=== PATIENT | female | born 1950 | race Caucasian/White ===

== ENCOUNTER 2016-07-29 05:02 | Day surgery (SDC) | payer MEDICARE, OTHER ==
[~2016-07-29 05:02] MED LIST: CALTRA600D PO; FISH OIL PO; GLUCCHONDR PO; LORTAB10 PO; MOBIC15 MG PO; MULTIPLE VIT PO; MULTIVITAMI1 PO; NORCO1 TAB PO; OSTEO BI-FLEX1 EACH PO; OSTEO BI-FLX PO; PRAVAC PO; PRILOSEC OTC20 MG PO; VITAMIN C1000 MG PO; VITAMIN D1000 UNI1 PO
== END 2016-07-29 08:57 | disposition home or self-care (01) ==
LOC: SDC 05:02
PROVIDERS: Orthopaedic Surgery
PROC: 3E0S33Z Introduction of Anti-inflammatory into Epidural Space, Percutaneous Approach (ICD-10-PCS; 2016-07-29)
PROC: B01BZZZ Fluoroscopy of Spinal Cord (ICD-10-PCS; 2016-07-29)
PROC: 3E0S3BZ Introduction of Anesthetic Agent into Epidural Space, Percutaneous Approach (ICD-10-PCS; principal; 2016-07-29 09:00)
DX: M47.26 Other spondylosis with radiculopathy, lumbar region (principal); M41.9 Scoliosis, unspecified; M19.90 Unspecified osteoarthritis, unspecified site; E78.00 Pure hypercholesterolemia, unspecified; H26.9 Unspecified cataract; Z88.5 Allergy status to narcotic agent; Z79.1 Long term (current) use of non-steroidal anti-inflammatories (NSAID); Z79.899 Other long term (current) drug therapy; Z90.710 Acquired absence of both cervix and uterus; Z90.722 Acquired absence of ovaries, bilateral; Z96.653 Presence of artificial knee joint, bilateral; Z90.89 Acquired absence of other organs; Z98.890 Other specified postprocedural states
CPT/HCPCS: J1040; J2250; J2405; J3010; Q9967